=== PATIENT | female | born 1965 | race Caucasian/White ===

== ENCOUNTER 2017-05-03 17:03 | Inpatient (IN) | payer OTHER ==
[~2017-05-03] VITALS: Ht 162.6 cm; Wt 57.4 kg
[~2017-05-03 17:03] MED LIST: ADVIL COLD &1 TABLET PO; FLEXERIL5 MG PO; MILK OF MAGN PO; MULTI-VITAMIN1 EAC4 PO; NO HOME MEDS; NORCO 5/3251 TABLET PO; SPRYCEL70 MG PO; TYLENOL REGULA325 MG PO; XANAX0.25 MG PO; ZITHROMAX Z-PA250 MG PO; ZITHROMAX250 MG PO
[2017-05-03 18:09] LABS: HEMATOCRIT 32.6 % (36.0-46.0); MCHC 33.4 G/DL (30.0-36.0); MCV 92.6 FL (83-99); MEAN PLAT.VOLUME 9.2 uM^3 (9.5-12.4); PLATELET COUNT 208 K/uL (156-360); RBC DIS.WIDTH-CV 11.9 % (11.8-14.6); RBC DIS.WIDTH-SD 40.3 % (39-53); RED BLOOD COUNT 3.52 M/uL (3.80-5.20); WHITE BLOOD COUNT 5.8 K/uL (4.1-10.2)
[2017-05-03 18:15] LABS: CHLORIDE 107 mEq/L (99-109); POTASSIUM 3.7 mEq/L (3.7-5.4); SODIUM 141 mEq/L (136-147)
[2017-05-03 18:16] LABS: GLUCOSE 110 mg/dL (70-99)
[2017-05-03 18:18] LABS: ANION GAP 10 MEQ/L (2-14)
[2017-05-03 18:20] LABS: GFR ESTIMATE (CALCULATED) > 59 mL/min/
[2017-05-03 18:21] LABS: UREA NITROGEN (BUN) 20 mg/dL (9-23)
[2017-05-03] MEDS ORDERED: CYCLOBENZAPRINE10 MG PO (21:42)
[2017-05-04] VITALS (16 sets, daily range): BP systolic 96–119; BP diastolic 57–75
[2017-05-04 02:17] LABS: METH RESISTANT S AUREUS PCR NEGATIVE (NEGATIVE)
[2017-05-04 02:18] LABS: PROBE CHECK PASS; SPECIMEN PROCESSING CONTROL PASS
[2017-05-04 05:45] LABS: HEMATOCRIT 29.8 % (36.0-46.0); MCH 31.4 PG (29.0-34.0); MCHC 32.9 G/DL (30.0-36.0); MCV 95.5 FL (83-99); MEAN PLAT.VOLUME 10.1 uM^3 (9.5-12.4); PLATELET COUNT 186 K/uL (156-360); RBC DIS.WIDTH-CV 12.1 % (11.8-14.6); RBC DIS.WIDTH-SD 42.5 % (39-53); RED BLOOD COUNT 3.12 M/uL (3.80-5.20); WHITE BLOOD COUNT 5.5 K/uL (4.1-10.2)
[2017-05-04 05:57] LABS: ANION GAP 7 MEQ/L (2-14); CHLORIDE 110 MEQ/L (99-109); GFR ESTIMATE (CALCULATED) > 59 mL/min/; GLUCOSE 101 mg/dL (70-99); POTASSIUM 3.8 MEQ/L (3.7-5.4); SAMPLE HEMOLYSIS CHECK 0; SAMPLE ICTERIC CHECK 0; SAMPLE LIPEMIA CHECK 0; SODIUM 141 MEQ/L (136-147); UREA NITROGEN (BUN) 15 mg/dL (9-23)
[2017-05-05 00:16] VITALS: BP 112/58
[2017-05-05 05:40] VITALS: BP 101/53
[2017-05-05 08:10] VITALS: BP 104/57
[2017-05-05 11:48] VITALS: BP 110/60
[2017-05-05 16:21] VITALS: BP 122/67
[2017-05-05 19:17] VITALS: BP 127/67
[2017-05-06] VITALS: BP 113/72
[2017-05-06 03:47] VITALS: BP 120/61
[2017-05-06 08:13] VITALS: BP 114/59
[2017-05-06 11:57] VITALS: BP 128/74
[2017-05-06] MEDS ORDERED: TRAMADOL HCL50 MG PO (12:39)
== END 2017-05-06 14:05 | disposition home or self-care (01) | DRG 83 ==
LOC: EME 17:03 → EDOF 22:53 → 3EAST 22:53 → 4WEST 22:53 → ENRESERV 22:54 → 4WEST 05-04 00:42 → EDOF 05-04 00:42 → 4WEST 05-04 11:29 → ENRESERV 05-04 11:31 → 3EAST 05-04 13:39
PROVIDERS: Emergency Medicine; Surgery
DX: S06.6X9A Traumatic subarachnoid hemorrhage with loss of consciousness of unspecified duration, initial encounter (principal); S16.1XXA Strain of muscle, fascia and tendon at neck level, initial encounter; W11.XXXA Fall on and from ladder, initial encounter; R55 Syncope and collapse; M25.512 Pain in left shoulder; R10.9 Unspecified abdominal pain; C92.10 Chronic myeloid leukemia, BCR/ABL-positive, not having achieved remission; F41.9 Anxiety disorder, unspecified; F17.200 Nicotine dependence, unspecified, uncomplicated; Z85.41 Personal history of malignant neoplasm of cervix uteri
CPT/HCPCS: 70450; 70496; 71010; 72040; 72125; 80048; 85027; 87641; 93005; 94760; 94799; 99281; 99285; C9113; J2270; J2405; J3010; J7030